=== PATIENT | male | born 1945 | race Caucasian/White ===

== ENCOUNTER → 2016-12-25 | Outpatient (CLI) | payer MEDICARE ==
--- NOTE | 2016-12-25 11:29 | Diagnostic Imaging Report ---
PROCEDURE: MRI lumbar spine. TECHNIQUE: Multiplanar, multisequence MRI of the lumbar spine was performed without contrast. INDICATION: Chronic back pain. FINDINGS: There is slight anterolisthesis of L4 on L5. Vertebral body heights are well maintained. No fractures are identified. Conus medullaris seen at L1 and is normal in appearance. The T12-L1 disc is unremarkable. The L1-L2 disc is unremarkable. At L2-L3 there is slight loss of disc height and signal intensity with some minimal annular bulging. At L3-L4 there is slight loss of disc height and signal intensity. There is mild annular bulging with some facet disease and thickening of the ligamentum flavum. There is mild central spinal stenosis and mild bilateral neural foraminal encroachment. At L4-L5 there is moderate loss of disc height and signal intensity. There is marked broad-based annular bulging, facet disease, and thickening of the ligamentum flavum. There is severe central spinal stenosis with severe right and moderately severe left neural foraminal encroachment. At L5-S1 there is mild broad-based annular bulging resulting in slight effacement of the ventral thecal sac. The abdominal aorta is nonaneurysmal. The kidneys are unremarkable. IMPRESSION: Severe spinal stenosis at L4-L5 as well as bilateral encroachment upon the lateral recesses and bilateral neural foraminal encroachment as described above. This is secondary to a combination of annular bulging, facet disease, and thickening of the ligamentum flavum. Dictated by: Dictated on workstation # [id number]
== END ==
LOC: RAD 10:25
PROVIDERS: ATTEND Orthopaedic Surgery
DX: M48.06 Spinal stenosis, lumbar region (principal)
CPT/HCPCS: 72148

== ENCOUNTER 2020-04-07 00:38 | Emergency (ER) | payer MEDICARE ==
[~2020-04-07] VITALS: Ht 177.8 cm; Wt 68.0 kg
--- NOTE | 2020-04-07 00:54 | ED Chest Pain ---
General Chief Complaint: Chest Pain Stated Complaint: CHEST PAIN Source: patient Exam Limitations: no limitations History of Present Illness Date Seen by Provider: Apr 07, 2020 Time Seen by Provider: 00:50 Initial Comments Patient is a 75-year-old male who presents to the emergency room today with a chief complaint of midsternal chest discomfort. He states it feels like a hard pain. He states he woke up with that at around 630 or 7:00 this evening and the pain has been constant. At one point when he was leaning over his desk he felt a little bit better. Nothing really makes the pain any worse. Patient did not take any medications for the pain. He states it feels different than heartburn. Patient states that he was a little bit short of breath with the pain but denies any nausea or sweating. He states he has never had a pain like this before. Patient has a significantly remote history of smoking. No history of coronary artery disease. No recent illnesses such as fevers, chills, productive cough or other complaints of illness or injury. All other review of systems reviewed and negative except as stated above. Timing/Duration: 4-6 hours Severity/Quality: moderate Location: substernal, epigastric Radiation: no radiation Activities at Onset: none Prior CP/Workup: no prior chest pain Modifying Factors: improves with other (Leaning over at 1 point improved his pain) ASA po COMMAND AND CONTROL OFFICER: No NTG SL COMMAND AND CONTROL OFFICER: No Associated Symptoms: denies symptoms Allergies and Home Medications Allergies Coded Allergies: No Known Drug Allergies (Unverified , 04/07/20) Patient Home Medication List Home Medication List Reviewed: Yes Review of Systems Review of Systems Constitutional: no symptoms reported, see HPI EENTM: No Symptoms Reported Respiratory: No Symptoms Reported; Denies Cough, Denies Shortness of Air Cardiovascular: Chest Pain Gastrointestinal: No Symptoms Reported Genitourinary: No Symptoms Reported Musculoskeletal: no symptoms reported Skin: no symptoms reported All Other Systems Reviewed Negative Unless Noted: Yes Past Rnuhgqp-Ianmea-Mgypxv Hx Patient Social History Recent Foreign Travel: No Contact w/Someone Who Travel: No Physical Exam Vital Signs Vital Signs - First Documented Capillary Refill : Height, Weight, BMI Height: '" Weight: lbs. oz. kg; BMI Method: General Appearance: No Apparent Distress, WD/WN HEENT: PERRL/EOMI Respiratory: Lungs Clear, Normal Breath Sounds, No Accessory Muscle Use, No Respiratory Distress Cardiovascular: Regular Rate, Rhythm, No Murmur, Normal Peripheral Pulses Gastrointestinal: Normal Bowel Sounds, Non Tender, Soft Extremity: Normal Inspection, No Pedal Edema Neurologic/Psychiatric: Alert, Oriented x3, No Motor/Sensory Deficits, Normal Mood/Affect Skin: Normal Color, Warm/Dry Progress/Results/Core Measures Results/Orders Lab Results Laboratory Tests Test 04/07/20 00:45 Range/Units White Blood Count 8.6 4.3-11.0 10^3/uL Red Blood Count 4.59 4.30-5.52 10^6/uL Hemoglobin 15.1 13.3-17.7 g/dL Hematocrit 45 40-54 % Mean Corpuscular Volume 98 80-99 fL Mean Corpuscular Hemoglobin 33 25-34 pg Mean Corpuscular Hemoglobin Concent 34 32-36 g/dL Red Cell Distribution Width 12.0 10.0-14.5 % Platelet Count 259 130-400 10^3/uL Mean Platelet Volume 9.7 9.0-12.2 fL Immature Granulocyte % (Auto) 0 % Neutrophils (%) (Auto) 56 42-75 % Lymphocytes (%) (Auto) 29 12-44 % Monocytes (%) (Auto) 12 0-12 % Eosinophils (%) (Auto) 3 0-10 % Basophils (%) (Auto) 1 0-10 % Neutrophils # (Auto) 4.8 1.8-7.8 10^3/uL Lymphocytes # (Auto) 2.5 1.0-4.0 10^3/uL Monocytes # (Auto) 1.0 0.0-1.0 10^3/uL Eosinophils # (Auto) 0.3 0.0-0.3 10^3/uL Basophils # (Auto) 0.0 0.0-0.1 10^3/uL Immature Granulocyte # (Auto) 0.0 0.0-0.1 10^3/uL Sodium Level 141 135-145 MMOL/L Potassium Level 4.3 3.6-5.0 MMOL/L Chloride Level 105 98-107 MMOL/L Carbon Dioxide Level 23 21-32 MMOL/L Anion Gap 13 5-14 MMOL/L Blood Urea Nitrogen 28 H 7-18 MG/DL Creatinine 0.85 0.60-1.30 MG/DL Estimat Glomerular Filtration Rate > 60 BUN/Creatinine Ratio 33 Glucose Level 99 70-105 MG/DL Calcium Level 9.7 8.5-10.1 MG/DL Total Creatine Kinase 68 30-200 U/L Troponin I 0.037 H <0.028 NG/ML My Orders Orders - NIMESH AYALA MD Ed Iv/Invasive Line Start (04/07/20 00:53) Ekg Tracing (04/07/20 00:53) Chest 1 View, Ap/Pa Only (04/07/20 00:53) Cbc With Automated Diff (04/07/20 00:53) Basic Metabolic Panel (04/07/20 00:53) Troponin I (04/07/20 00:53) Creatine Kinase (04/07/20 00:53) Aspirin Chewable Tablet (Baby Aspirin Ch (04/07/20 09:00) Ketorolac Injection (Toradol Injection) (04/07/20 01:00) Aspirin Chewable Tablet (Baby Aspirin Ch (04/07/20 01:00) Aspirin Chewable Tablet (Baby Aspirin Ch (04/07/20 00:56) Medications Given in ED Current Medications Medications Dose Ordered Sig/Juliano Route Start Time Stop Time Status Last Admin Dose Admin Ketorolac Tromethamine 15 mg ONCE ONCE IVP 04/07/20 01:00 04/07/20 01:01 DC 04/07/20 01:00 15 MG Vital Signs/I&O 04/07/20 04/07/20 00:44 00:44 Temp 35.1 Pulse 86 Resp 20 B/P (MAP) 168/93 (118) O2 Delivery Room Air Room Air Progress Progress Note : Time: 01:01 Progress Note 75-year-old male presents with a chief complaint of chest pain. Evaluation today includes a physical exam, EKG, chest x-ray single view, CBC, chemistry, serum troponin. Patient is treated here in the emergency department with 4 baby aspirin, 324 mg total, 15 mg of IV Toradol. Patient appears well and in no acute distress. No significant history or clinical or objective findings that are concerning for acute coronary syndrome. Will await laboratory studies and imaging and make a disposition from there. 0141 Long discussion with the patient regarding his positive troponin of 0.038. Patient tells me at this time that his pain is completely resolved. He wants to go home. I did tell the patient extensively that he has had a heart attack. The chemical markers that indicate that he has had a heart attack are elevated in his bloodstream. I described the pathophysiology in layman's terms to him regarding the risks of leaving which includes major heart attack, stroke, . Patient verbalizes understanding and states that he still wants to go home. In no way could not convince the patient to stay for further evaluation by cardiology. Patient states that he does not like to go to doctors. I did tell him that I would give him contact information for Dr. Miranda's office and I st payan encouraged him to call this morning to get a follow-up appointment. I told him that he was more than welcome to come back at any time to seek further care. He verbalizes understanding. He insists on being discharged AGAINST MEDICAL ADVICE. Initial ECG Impression Date: Apr 07, 2020 Initial ECG Impression Time: 00:46 Initial ECG Rate: 90 Initial ECG Rhythm: Normal Sinus Initial ECG Intervals: Normal Initial ECG Impression: Normal Comment EKG demonstrates poor R wave progression over the precordium, left atrial enlargement, no ectopy, no ST segment elevation or depression is noted Departure Impression Primary Impression: Acute myocardial infarction Qualified Codes: I21.4 - Non-ST elevation (NSTEMI) myocardial infarction Additional Impression: Chest pain Qualified Codes: I25.9 - Chronic ischemic heart disease, unspecified Disposition: 07 AGAINST MEDICAL ADVICE Condition: Stable Departure-Patient Inst. Decision time for Depature: 01:43 Referrals: LIZZIE EPSTEIN DO (PCP) Primary Care Physician JOSSIE LE (Family) Primary Care Physician CIARA LEYVA MD Patient Instructions: Coronary Artery Disease, Heart Attack Add. Discharge Instructions: Please take a baby aspirin every day. Please call Dr. Leyva's office today for a follow-up appointment. Please come back to the emergency department if your chest pain returns if it worsens if you have other symptoms or any other emergent concerns. All discharge instructions reviewed with patient and/or family. Voiced understanding. Copy Copies To 1: LIZZIE EPSTEIN KATHRYN M MD Apr 07, 2020 00:54
[2020-04-07] MEDS ORDERED: ASPIRIN 81 MG CHEW (CHILDREN'S ASA) ONE (00:56)
[2020-04-07 00:59] LABS: BASOPHILS % (AUTO) 1 % (0-10); EOSINOPHILS # (AUTO) 0.3 10^3/uL (0.0-0.3); EOSINOPHILS % (AUTO) 3 % (0-10); HEMATOCRIT 45 % (40-54); HEMOGLOBIN 15.1 g/dL (13.3-17.7); LYMPHOCYTES # (AUTO) 2.5 10^3/uL (1.0-4.0); LYMPHOCYTES % (AUTO) 29 % (12-44); MEAN CORPUSCULAR HEMOGLOBIN 33 pg (25-34); MEAN CORPUSCULAR HGB CONC 34 g/dL (32-36); MEAN CORPUSCULAR VOLUME 98 fL (80-99); MEAN PLATELET VOLUME 9.7 fL (9.0-12.2); MONOCYTES % (AUTO) 12 % (0-12); NEUTROPHILS # (AUTO) 4.8 10^3/uL (1.8-7.8); NEUTROPHILS % (AUTO) 56 % (42-75); PLATELET COUNT 259 10^3/uL (130-400); WHITE BLOOD COUNT 8.6 10^3/uL (4.3-11.0)
[2020-04-07] MEDS ORDERED: KETOROLAC 30 MG/ML VIAL IVP ONE (01:00)
[2020-04-07] MEDS ORDERED: ASPIRIN 81 MG CHEW (CHILDREN'S ASA) PO SCH ×2 (01:00→09:00)
[2020-04-07 01:04] LABS: CHLORIDE 105 MMOL/L (98-107); POTASSIUM 4.3 MMOL/L (3.6-5.0); SODIUM 141 MMOL/L (135-145)
[2020-04-07 01:05] LABS: CALCIUM 9.7 MG/DL (8.5-10.1)
[2020-04-07 01:06] LABS: GLUCOSE 99 MG/DL (70-105)
[2020-04-07 01:07] LABS: CARBON DIOXIDE 23 MMOL/L (21-32)
[2020-04-07 01:09] LABS: CREATININE SERUM 0.85 MG/DL (0.60-1.30); GFR ESTIMATED > 60
[2020-04-07 01:10] LABS: BUN/CREATININE RATIO 33
[2020-04-07 01:12] LABS: CREATINE KINASE 68 U/L (30-200)
[2020-04-07 01:50] VITALS: BP 136/83
--- NOTE | 2020-04-07 01:50 | NUR ---
DR. AYALA TALKED EXTENSIVELY WITH PT ABOUT BENEFITS OF STAYING FOR ADMISSION AND RISKS OF LEAVING. PT VERBALIZED UNDERSTANDING AND STATES HE WANTS TO GO HOME TO CHECK ON HIS DOGS. PT SIGNED AMA FORM AND DC INSTRUCTION FORM EDUCATION ON HEART ATTACK AND CORONARY ARTERY DISEASE GIVEN TO PT. DR. AYALA INSTRUCTED PT TO TAKE BABY ASA DAILY AND PT STATES "I DON'T HAVE ANY ASPIRIN AT HOME. CAN I JUST TAKE SOME ALEVE?" EDUCATION ON DIFFERENCES BETWEEN ASPIRIN AND ALEVE. PT SENT HOME WITH 2 SAMPLE SIZE BOTTLES OF 81MG ENTERIC COATED ASPIRIN.
--- NOTE | 2020-04-07 06:13 | Diagnostic Imaging Report ---
CHEST 1 VIEW, AP/PA ONLY Indication: Chest pain. Comparison: None available. Findings: No focal airspace disease in the visualized lungs. Please note that the posterior lower lobes are poorly evaluated by portable radiography. No pleural effusion or pneumothorax. Normal cardiomediastinal silhouette. Impression: 1. No acute cardiopulmonary process by portable radiography. Dictated by: Dictated on workstation # [id number]
== END 2020-04-07 01:50 | disposition left against medical advice (07) ==
LOC: EDUNIT# 00:38 → ER 00:40
DX: I21.9 Acute myocardial infarction, unspecified (principal); R07.9 Chest pain, unspecified
CPT/HCPCS: 36415; 71045; 80048; 82550; 84484; 85025; 93005

== ENCOUNTER → 2020-04-11 | Outpatient (CLI) | payer MEDICARE ==
[~2020-04-11] VITALS: Ht 177 cm; Wt 70.0 kg
[~2020-04-11] MED LIST: CATHETER FLUSH 10 ML SYR IV PRN; REGADENOSON 0.4 MG/5 ML SYR (LEXISCAN) IV ONE
[2020-04-11 09:11] VITALS: BP 140/85
== END ==
LOC: CARD 08:00
PROVIDERS: ATTEND Internal Medicine Cardiovascular Disease
DX: R07.9 Chest pain, unspecified (principal)
CPT/HCPCS: 78452; 93017; A9502

== ENCOUNTER 2020-05-18 09:00 | Day surgery (SDC) | payer MEDICARE ==
[2020-05-18] VITALS (15 sets, daily range): BP systolic 93–153; BP diastolic 62–97
[~2020-05-18] VITALS: Ht 177 cm; Wt 71.0 kg
[2020-05-18 07:39] LABS: HEMOGLOBIN 13.8 g/dL (13.3-17.7); MEAN PLATELET VOLUME 10.2 fL (9.0-12.2); WHITE BLOOD COUNT 6.1 10^3/uL (4.3-11.0)
[2020-05-18 07:52] LABS: PROTHROMBIN TIME PATIENT 13.4 SEC (12.2-14.7)
[2020-05-18 08:00] LABS: ALANINE AMINOTRANSFERASE 17 U/L (0-55); ALKALINE PHOSPHATASE 82 U/L (40-136); BILIRUBIN,TOTAL 0.3 MG/DL (0.1-1.0); BUN/CREATININE RATIO 34; CALCIUM 9.7 MG/DL (8.5-10.1); CARBON DIOXIDE 24 MMOL/L (21-32); CHLORIDE 107 MMOL/L (98-107); CHOLESTEROL 202 MG/DL (< 200); CREATININE SERUM 0.95 MG/DL (0.60-1.30); GFR ESTIMATED > 60; GLUCOSE 86 MG/DL (70-105); HDL CHOLESTEROL 47 MG/DL (40-60); POTASSIUM 4.2 MMOL/L (3.6-5.0); SODIUM 142 MMOL/L (135-145); TOTAL PROTEIN 6.7 GM/DL (6.4-8.2); TRIGLYCERIDES 155 MG/DL (<150); VLDL CHOLESTEROL 31 MG/DL (5-40)
--- NOTE | 2020-05-18 08:21 | Diagnostic Imaging Report ---
INDICATION: Coronary artery disease FINDINGS: The heart size and its configuration normal. No failure, effusion or pneumothorax. IMPRESSION: No acute appearing abnormality. Dictated by: Dictated on workstation # [id number]
[~2020-05-18 09:00] MED LIST changes: +ASPI-999 PO; -CATHETER FLUSH 10 ML SYR IV PRN; +HEParin (CATH LAB) 2,000 ML IV ONE; +HEParin 1000 UNIT/ML (10ML VIAL) FOR BOLUS ONE; +LIDOCAINE 1% INJ 20 ML 20 ML VIAL ONE; +MIDAZOLAM 5 MG/5 ML (VERSED) VIAL ONE; +NAPR220C11 PO; +NITRO DRIP 25000 MCG/D5W 250 ML IV ONE; +NS IV 1000 ML 1,000 ML IV SCH; +NS IV 1000 ML 1,000 ML ONE; -REGADENOSON 0.4 MG/5 ML SYR (LEXISCAN) IV ONE; +VERAPAMIL 5 MG/2 ML (CALAN) VIAL IV ONE; +fentaNYL INJECTION 100 MCG/2 ML AMP ONE
[2020-05-18] MEDS ORDERED: EPTIFIBATIDE BOLUS 20 ML IV ONE (09:24)
[2020-05-18] MEDS ORDERED: CLOPIDOGREL 300 MG (PLAVIX) TABLET PO ONE (09:41)
[2020-05-18] MEDS ORDERED: ASPIRIN 325 MG (5 GR) TABLET ONE (09:41)
--- NOTE | 2020-05-18 10:00 | NUR ---
pt arrived in holding bay #2 post procedure. R hand with armband present and good.
--- NOTE | 2020-05-18 10:15 | Cardiac Procedure Note-CS/ASA ---
Pre-Procedure Note Pre-Op Procedure Note H&P Reviewed The H&P was reviewed, patient examined and no changes noted. Date H&P Reviewed: May 18, 2020 Time H&P Reviewed: 10:15 Conscious Sedation Pre-Proced Time 10:15 ASA Score 3 For ASA 3 and 4: Consider anesthesia and medical clearance. Also, for patients with a history of failed moderate sedation consider anesthesia. Airway Lungs Heart ASA score ASA 1: a normal healthy patient ASA 2: a patient with a mild systemic disease (mid diabetes, controlled hypertension, obesity x ASA 3: a patient with a severe systemic disease that limits activity (angina, COPD, prior Myocardial infarction) ASA 4: a patient with an incapacitating disease that is a constant threat to life (CHF, renal failure) ASA 5: a moribund patient not expected to survive 24 hrs. (ruptured aneurysm) ASA 6: a declared brain- patient whose organs are being harvested. For emergent operations, add the letter E after the classification Mallampati Classification Grade 3 Sedation Plan Analgesia, Amnesia, Plan communicated to team members, Discussed options with patient/fam, Discussed risks with patient/fam The patient is an appropriate candidate to undergo the planned procedure, sedation, and anesthesia. The patient immediately re-assessed prior to indication. CIARA NICHOLE MD May 18, 2020 10:15
--- NOTE | 2020-05-18 10:23 | Cardiac Cath Report ---
Cardiac Cath Report Physician (s)/Physician Practice Coordinator (s) Physician CIARA NICHOLE MD Pre-Procedure Diagnosis Pre-Procedure Diagnosis: coronary artery disease Post-Procedure Note Procedure Start Date: May 18, 2020 Name of Procedure: Left heart catheterization Stenting to the LAD PTCA to the diagonal Findings/Procedure Note PROCEDURE NOTE: 75 years old gentleman with recent myocardial infarction, signed out AMA, had an abnormal stress test with infarction of the anterior and anterolateral wall. Scheduled for cardiac catheterization possible PTCA. After explaining the procedure to the patient, all pros and cons were explained, all questions were answered. The patient signed the consent and then he was placed on the cardiac catheterization laboratory. Groin was prepped SL fashion local anesthesia was used. Sheath placed in the right radial artery. Amity catheter advanced to the left ventricular cavity, pressure was measured pullback LV to aorta then intubated the left and right coronary system and angiogram was done. Patient was noted to have total occlusion of a large diagonal artery and severe stenosis in the mid LAD, given a total of 6000 units of heparin, EBU guide was advanced to the left main then at BMW wire was placed in the diagonal artery and the second wire was advanced in the LAD, primary stenting to the LAD was done using 2.5 x 15 mm Rebeka stent expanded to 2.75 mm, balloon angioplasty to the diagonal artery was done using 2.5 x 20 mm with soft inflation up to 5 светлана with good results. There is significant recoiling in the diagonal artery, overall the flow has improved. At the end of the procedure the sheath was removed. Vascular band was used FINDINGS: Hemodynamics LV 103/14, end-diastolic pressure 14 Aorta 115/68 mean of 89 ANATOMY: Left Main is free of obstructive disease Left Anterior Descending has severe stenosis at the midportion successful primary stenting using 2.5 x 15 mm Rebeka drug-eluting stent expanded to 2.75 mm with excellent results, occlusion of the first diagonal artery, balloon angioplasty to the proximal portion, there is still recoiling in the artery but overall significant improvement. May require high risk intervention with stenting to that abdominal branch Left Circumflex is moderate in size with no obstructive disease Right Coronory Artery is tortuous artery with mild disease in the proximal portion nonobstructive disease LV Gram was not done, pressure was measured CONCLUSION: 1. Severe stenosis in the mid LAD was successful primary stenting using Rebeka 2.5 x 15 mm expanded to 2.75 mm with excellent results 2. Occlusion of the diagonal artery, the artery appeared to be smaller in size, balloon angioplasty using 2.5 x 20 mm with soft inflation up to 5 светлана reestablished flow with good flow in the diagonal territory, I was hesitant to place stent due to the slow flow initially and due to the fact that patient has total infarction in that area. I will evaluate viability study and will consider stenting to the diagonal artery if needed 3. Tortuous right coronary artery with 50 percent stenosis proximally, nonobstructive disease in the circumflex artery 4. Normal left ventricular end-diastolic pressure DISCUSSION AND RECOMMENDATION: Maximize medical therapy, planning to evaluate viability study. Educated the patient on compliance. Anesthesia Type: Conscious Sedation Estimated blood loss (mL): 35 ml Contrast Amount: 200 ml Total Radiation Dose: 985 mGy Post-Procedure Diagnosis Post-operative diagnosis: Coronary artery disease Congestive heart failure, chronic compensated left ventricular systolic dysfunction, ischemic cardiomyopathy Hyperlipidemia CIARA NICHOLE MD May 18, 2020 10:23 am
[2020-05-18] MEDS: NS IV 1000 ML 1,000 ML IV SCH ×2 (15:55→20:31)
[2020-05-19 04:25] VITALS: BP 146/99
[2020-05-19] MEDS ORDERED: CLOP75TA28 PO (06:24)
[2020-05-19] MEDS ORDERED: ATOR80TA76 PO (06:24)
--- NOTE | 2020-05-19 06:25 | Discharge Inst-Post CATH ---
Discharge Inst-CATH/EP Problems Reviewed?: Yes Post Cardiac Cath/EP D/C Inst Follow Up/Plan Appointment with Dr Leyva in 1-2 weeks <b>CARDIAC CATH/EP PROCEDURE DISCHARGE INSTRUCTIONS</b> ACTIVITY * Go Home directly and rest. * Limit activity of the leg (or wrist if it was used) for 7 days including aerobics, swimming, jogging, bicycling, etc. * Restrict stair-climbing for 7 days if possible, if not, climb up with your non-cath leg, then bring together on the same step. * Avoid lifting, pushing, pulling or excessive movement of the affected extremity for 7 days. * Customary sexual activity may be resumed after 2 days-use caution not to use a position that strains or causes pain to the affected extremity. * No driving for 24 hours. * NO SMOKING. * Avoid straining for bowel movements for 7 days. * Gentle walking on level ground is allowed. * Returning to work will depend on the type of procedure and the results. Your doctor will discuss this with you. CALL YOUR DOCTOR FOR ANY OF THE FOLLOWING: *If bleeding from the puncture site occurs- Apply gentle pressure to site with clean cloth and call your doctor or EMS. * If a knot or lump forms under the skin, increases in size, or causes pain. * If bruising appears to be worsening or moving further down your leg instead of disappearing. * Temperature above 101 F. CARE OF YOUR GROIN INCISION; * Bruising or purple discoloration of the skin near the puncture site is common. * You may shower only, no bathtub bathing for 5 days. Be careful to avoid slipping as your leg may feel stiff. * If a closure device was used on your femoral artery, please see the attached guide regarding care of the device and your leg. * Leave dressing on FOR 24 hours. CARE OF YOUR WRIST INCISION; * Bruising or purple discoloration of the skin near the puncture site is common. * You may shower. * DO NOT submerge wrist. * Leave dressing on FOR 24 hours. CIARA LEYVA MD May 19, 2020 06:25
[2020-05-19] MEDS: NS IV 1000 ML 1,000 ML IV SCH (06:45)
[2020-05-19 08:00] VITALS: BP 133/98
[2020-05-19] MEDS ORDERED: ASPIRIN E.C. 81 MG (ECOTRIN) TAB PO SCH (09:00)
[2020-05-19] MEDS ORDERED: CLOPIDOGREL 75 MG (PLAVIX) TABLET PO SCH (09:00)
--- NOTE | 2020-05-19 09:00 | Cardiology Progress Note ---
Subjective Date Seen by Provider: May 19, 2020 Time Seen by Provider: 08:59 Subjective/Events-last exam patient is laying down in bed, feeling well. All questions answered. Review of Systems General: No Chills, No Night Sweats, No Fatigue, No Malaise, No Appetite, No Other HEENT: No Head Aches, No Visual Changes, No Eye Pain, No Ear Pain, No Dysphasia, No Sinus Congestion, No Post Nasal Drip, No Sore Throat, No Other Pulmonary: No Dyspnea, No Cough, No Pleuritic Chest Pain, No Other Cardiovascular: No: Chest Pain, Palpitations, Orthopnea, Paroxysmal Noc. Dyspnea, Edema, Lt Headedness, Other Objective-Cardiology Exam Last Set of Vital Signs Vital Signs 05/19/20 05/19/20 08:00 08:03 Temp 36.4 Pulse 79 Resp 18 B/P (MAP) 133/98 (110) Pulse Ox 98 O2 Delivery Room Air Capillary Refill : Less Than 3 Seconds I&O Intake and Output 05/19/20 00:00 Intake Total 100 ml Balance 100 ml Intake Oral 100 ml # Voids 1 # Bowel Movements 1 General: Alert, Oriented X3, Cooperative HEENT: Atraumatic, PERRLA Neck: Supple, No JVD, No Thyromegaly Lungs: Clear to Auscultation, Normal Air Movement Heart: Regular Rate, Normal S1, Normal S2, No Murmurs Abdomen: Normal Bowel Sounds, Soft, No Tenderness, No Hepatosplenomegaly, No Masses Extremities: No Clubbing, No Cyanosis, No Edema, Normal Pulses, No Tenderness/Swelling Skin: No Rashes, No Breakdown, No Significant Lesion Neuro: Normal Gait, Normal Speech, Strength at 5/5 X4 Ext, Normal Tone, Sensation Intact Psych/Mental Status: Mental Status NL, Mood NL A/P-Cardiology Admission Diagnosis coronary artery disease Congestive heart failure Hypertension Hyperlipidemia Assessment/Plan coronary artery disease status post stent to the LAD, diagonal artery is severely diseased not intervened due to small vessel disease Congestive heart failure ischemic in nature, chronic compensated left ventricular systolic dysfunction, conservative management at this time, continue to maximize medical therapy Hypertension-controlled monitor blood pressure Hyperlipidemia. CIARA NICHOLE MD May 19, 2020 09:00
== END 2020-05-19 09:33 | disposition home or self-care (01) ==
LOC: CATH 09:00 → CSD 11:08 → CATH 05-19 09:33
PROVIDERS: ATTEND Internal Medicine Cardiovascular Disease
DX: I25.10 Atherosclerotic heart disease of native coronary artery without angina pectoris (principal); I50.22 Chronic systolic (congestive) heart failure; E78.2 Mixed hyperlipidemia; Z79.82 Long term (current) use of aspirin; Z79.899 Other long term (current) drug therapy; Z87.891 Personal history of nicotine dependence
CPT/HCPCS: 71045; 80053; 80061; 85027; 85610; 85730; 87081; 92921; 93306; 93458; C1725; C1769; C1874; C1887; C1894; C9600; 36415